=== PATIENT | female | born 1995 | race Asian ===

== ENCOUNTER 2020-04-30 13:17 | Emergency (ER) | payer BC ==
[~2020-04-30] VITALS: Ht 157.5 cm; Wt 77.1 kg
--- NOTE | 2020-04-30 14:22 | Emergency Department Note ---
History of Present Illnes History of Present Illness Chief Complaint: General Medicine Complaints History of Present Illness This is a 24 year old female LEFT SIDE UPPER CHEST PAIN NON RADIAITING. NO SOB.. NO NAUSEA. AAOX4. AMBULATORY. SEE'S CASA FOR DX ADHD AND OCD. PT TAKES PROPANOLOL PRN AND JUST STOPPED TAKING ADDERAL PER HER MD. PT OUT OF FLUXOTINE AND RISPIROLD SINCE WEDNESDAY AND HAS DEVELOPED CHEST PAIN. PT STATES HER FLUXOTINE DOSE INCREASED FROM 20MG OT 40MG ONCE NEW RX IS STARTED.. Historian: Patient, Family Member Arrival Mode: Car Filtration Supervisor Required: No Onset (how long ago): minute(s) (15) Location: L upper chest Radiation: Reports non-radiation Severity: moderate Onset quality: sudden Timing of current episode: other (Brief) Progression: resolved Chronicity: new Relieving factors: none Exacerbating factors: none Associated symptoms: Reports denies other symptoms Past Medical/Family History Physician Review I have reviewed the patient's past medical and family history. Any updates have been documented here. Past Medical History Recent Fever: No Clinical Suspicion of Infectio: No New/Unexplained Change in Ment: No Past Medical History: Other Mental Illness Other Medical History: OCD ADHD Past Surgical History: None Social History Physically hurt or threatened: No Review of Systems Review of Systems Constitutional: Reports no symptoms EENTM: Reports no symptoms Cardiovascular: Reports no symptoms, Reports chest pain Respiratory: Reports no symptoms Gastrointestinal: Reports no symptoms Genitourinary: Reports no symptoms Musculoskeletal: Reports no symptoms Integumentary: Reports no symptoms Neurological: Reports no symptoms Psychological: Reports no symptoms Endocrine: Reports no symptoms Hematological/Lymphatic: Reports no symptoms Physical Exam Related Data Allergies: Coded Allergies: No Known Allergies (Unverified , 04/30/20) Triage Vital Signs Vital Signs Date Time Temp Pulse Resp B/P (MAP) Pulse Ox O2 Delivery O2 Flow Rate FiO2 04/30/20 14:01 97.7 90 16 102/67 100 Room Air Physical Exam CONSTITUTIONAL Constitutional: Present well-developed, Present well-nourished HENT HENT: Present normocephalic, Present atraumatic, Present oropharynx clear/moist, Present nose normal HENT L/R: Present left ext ear normal, Present right ext ear normal EYES Eyes: Reports PERRL, Reports conjunctivae normal NECK Neck: Present ROM normal PULMONARY Pulmonary: Present effort normal, Present breath sounds normal CARDIOVASCULAR Cardiovascular: Present regular rhythm, Present heart sounds normal, Present capillary refill normal, Present normal rate GASTROINTESTINAL Abdominal: Present soft, Present nontender, Present bowel sounds normal GENITOURINARY Genitourinary: Present exam deferred SKIN Skin: Present warm, Present dry MUSCULOSKELETAL Musculoskeletal: Present ROM normal NEUROLOGICAL Neurological: Present alert, Present oriented x 3, Present no gross motor or sensory deficits PSYCHOLOGICAL Psychological: Present mood/affect normal, Present judgement normal Procedures 12 Lead ECG Interpretation ECG Interpretation : ECG: ECG 1 Filtration Supervisor: Interpreted by ED physician Date: Apr 30, 2020 Rhythm: sinus rhythm Rate: normal QRS axis: normal ST segments normal: Yes T waves normal: Yes Assessment & Plan Medical Decision Making MDM 24 y.o F presents for CP and medication questions. Patients mother has many questions about medications. Initial differntial includes palpitations, MSK pain, medication rxn. VSS, WNL, doubt PE or ACS. Recently stopped Adderal and has decreased energy. Discussed with her that this is expected and instructed her to follow her doctor's recs for Prozac and Risperdal Rx. They would like a referral to another Psych doc. Info for new Psych doc given. Doubt emergent process at this time given normal EKG. Patient appropriate for DC. Reassessment Reassessment time: 15:00 Reassessment Well appearing NAD Assessment & Plan Final Impression: (1) Chest pain Depart Disposition: HOME, SELF-CARE Last Vital Signs Date Time Temp Pulse Resp B/P (MAP) Pulse Ox O2 Delivery O2 Flow Rate FiO2 04/30/20 14:01 97.7 90 16 102/67 100 Room Air FARHAD CHACON MD Apr 30, 2020 14:22
== END 2020-04-30 15:00 | disposition home or self-care (01) ==
LOC: ER 14:03
DX: R07.9 Chest pain, unspecified (principal); F90.9 Attention-deficit hyperactivity disorder, unspecified type; F42.9 Obsessive-compulsive disorder, unspecified
CPT/HCPCS: 93005; 99283

== ENCOUNTER 2022-11-14 04:36 | Emergency (ER) | payer BC, OTHER ==
[~2022-11-14] VITALS: Ht 160 cm; Wt 81.6 kg
[2022-11-14 04:51] LABS: BASOPHILS % 0.5 % (0.0-1.0); EOSINOPHILS # (AUTO) 0.1 (0.0-0.4); EOSINOPHILS % 1.8 % (0.0-6.0); HEMATOCRIT 39.4 % (34.2-44.1); HEMOGLOBIN 12.1 g/dL (12.0-16.0); LYMPHOCYTES # (AUTO) 2.1 (1.0-3.2); LYMPHOCYTES % 27.5 % (18.0-39.1); MEAN CORPUSCULAR HEMOGLOBIN 20.6 pg (28-32); MEAN CORPUSCULAR HGB CONC 30.7 g/dL (31-35); MEAN CORPUSCULAR VOLUME 67.1 fL (81-99); MONOCYTES # (AUTO) 0.7 (0.2-0.8); MONOCYTES % 9.5 % (4.4-11.3); NEUTROPHILS # (AUTO) 4.6 (2.1-6.9); NEUTROPHILS % 60.6 % (38.7-80.0); PLATELET COUNT 280 x10e3/uL (140-360); RED BLOOD COUNT 5.87 x10e6/uL (3.6-5.1); RED CELL DISTRIBUTION WIDTH 14.8 % (11.7-14.4)
[2022-11-14] MEDS ORDERED: SODIUM CHLORIDE 0.9% 1000ML 1,000 ML IV ONE (05:00)
[2022-11-14 05:09] LABS: ALBUMIN 4.7 g/dL (3.5-5.0); ALBUMIN/GLOBULIN RATIO 1.4 (0.8-2.0); ANION GAP 19.2 mmol/L (8-16); CALCIUM 9.5 mg/dL (8.4-10.2); CREATININE, SERUM 0.73 mg/dL (0.57-1.11); POTASSIUM 3.2 mmol/L (3.5-5.1)
[2022-11-14] MEDS ORDERED: SODIUM CHLORIDE 0.9% 1000ML 1,000 ML ONE (05:10)
[2022-11-14] MEDS ORDERED: LORAZEPAM INJ 2 MG/ML VIAL IV ONE (05:15)
[2022-11-14 05:16] LABS: CREATINE KINASE MB 0.7 ng/mL (0-5.0)
[2022-11-14 05:37] VITALS: BP 127/96
[2022-11-14 05:41] LABS: AMPHETAMINES SCREEN,URINE NEGATIVE (NEGATIVE); BENZODIAZEPINES SCREEN,URINE NEGATIVE (NEGATIVE); PHENCYCLIDINE SCREEN,URINE NEGATIVE (NEGATIVE)
== END 2022-11-14 06:01 | disposition home or self-care (01) ==
LOC: ER 04:41
DX: R00.2 Palpitations (principal); E87.6 Hypokalemia; G47.00 Insomnia, unspecified; F41.9 Anxiety disorder, unspecified; F17.210 Nicotine dependence, cigarettes, uncomplicated
CPT/HCPCS: 36415; 80053; 80307; 81025; 82550; 82553; 84484; 85025; 93005; 99284; J7030